=== PATIENT | female | born 1955 | race Caucasian/White ===

== ENCOUNTER 2023-07-16 06:33 | Day surgery (SDC) | payer OTHER, SELFPAY ==
[2023-07-16] VITALS (12 sets, daily range): BP systolic 131–154; BP diastolic 68–98; BMI 41.8
[2023-07-16 13:08] LABS: Glucose - Point of Care 128 mg/dl (70-99)
[2023-07-16] MEDS: NORMOSOL-R 1000 IV (13:08)
[2023-07-16] MEDS: DILAUDID 0.25 MG IV ×3 (14:50→15:36)
[2023-07-16 15:33] LABS: Glucose - Point of Care 143 mg/dl (70-99)
[2023-07-16] MEDS: ZOFRAN 4 MG IV (17:26)
== END 2023-07-16 17:37 | disposition home or self-care (01) ==
LOC: SDS 06:33
PROVIDERS: ATTENDING PHYSICIAN Otolaryngology
DX: T85.898A Other specified complication of other internal prosthetic devices, implants and grafts, initial encounter (principal); Y83.8 Other surgical procedures as the cause of abnormal reaction of the patient, or of later complication, without mention of misadventure at the time of the procedure
CPT/HCPCS: 69727; 82962